=== PATIENT | female | born 1990 | race Caucasian/White ===

== ENCOUNTER 2016-10-30 19:24 | Emergency (ER) | payer OTHER ==
[2016-10-30] MEDS ORDERED: ACETAMINOPHEN 325 MG TABLET PO ONE (19:54)
--- NOTE | 2016-10-30 19:54 | ER Document Report ---
ED Medical Screen (RME) - General Chief Complaint: Dog Bite Stated Complaint: DOG BITE/LEFT HAND INJURY Time seen by provider: 19:52 Mode of Arrival: Ambulatory Notes: 26 yo female presents to ed for dog bite to left 3rd finger TRAVEL OUTSIDE OF THE [place] IN LAST 30 DAYS: No - HPI Onset: This evening - 1740 Onset/Duration: Sudden Quality of pain: Sharp Severity: Moderate Pain Level: 3 Associated Symptoms: Other - dog bite to finger Exacerbated by: Movement Relieved by: Denies Similar symptoms previously: No Recently seen / treated by doctor: No - Related Data Smoking: Non-smoker Frequency of alcohol use: None Drug Abuse: None Allergies/Adverse Reactions: No Known Allergies Allergy (Verified 09/21/14 20:47) Past Medical History - Immunizations Hx Diphtheria, Pertussis, Tetanus Vaccination: Yes Physical Exam - Vital signs Vitals: Temp Pulse Resp BP Pulse Ox 98.0 F 85 18 114/70 100 10/30/16 19:48 10/30/16 19:48 10/30/16 19:48 10/30/16 19:48 10/30/16 19:48 Course - Vital Signs Vital signs: Temp Pulse Resp BP Pulse Ox 98.0 F 85 18 114/70 100 10/30/16 19:48 10/30/16 19:48 10/30/16 19:48 10/30/16 19:48 10/30/16 19:48
--- NOTE | 2016-10-30 21:34 | ER Document Report ---
ED Animal Bite - General Chief Complaint: Dog Bite Stated Complaint: DOG BITE/LEFT HAND INJURY Time seen by provider: 21:27 Mode of Arrival: Ambulatory Notes: This is a [id number] 26-year-old female that presents today with left middle finger injury. She states at 1740 this afternoon she was taking her dog outside, and the dog got startled and bit her left distal middle finger. She is up-to-date on her tetanus; last tetanus shot was 2012. Denies nausea vomiting fever or chills. Dog is up-to-date on vaccinations. TRAVEL OUTSIDE OF THE [place] IN LAST 30 DAYS: No - Related Data Allergies/Adverse Reactions: No Known Allergies Allergy (Verified 10/30/16 19:53) Past Medical History - General Information source: Patient Last Menstrual Period: july 10 2016 - Social History Smoking Status: Never Smoker Chew tobacco use (# tins/day): No Frequency of alcohol use: None Drug Abuse: None Family History: Reviewed & Not Pertinent Patient has suicidal ideation: No Patient has homicidal ideation: No - Immunizations Hx Diphtheria, Pertussis, Tetanus Vaccination: Yes Review of Systems - Review of Systems Constitutional: denies: Fever EENT: denies: Blurred vision Cardiovascular: denies: Chest pain Respiratory: denies: Cough, Short of breath Gastrointestinal: denies: Abdominal pain Genitourinary: No symptoms reported Female Genitourinary: No symptoms reported Musculoskeletal: No symptoms reported. denies: Joint swelling Skin: See HPI Hematologic/Lymphatic: denies: Anemia, Easy bleeding Neurological/Psychological: No symptoms reported Physical Exam - Vital signs Vitals: Temp Pulse Resp BP Pulse Ox 98.0 F 85 18 114/70 100 10/30/16 19:48 10/30/16 19:48 10/30/16 19:48 10/30/16 19:48 10/30/16 19:48 - HEENT Head: Normocephalic, Atraumatic Eyes: Normal Cornea: Normal - Respiratory Respiratory status: No respiratory distress Chest status: Nontender Breath sounds: Normal. No: Rales, Rhonchi, Stridor, Wheezing - Cardiovascular Rhythm: Regular Heart sounds: Normal auscultation - Abdominal Inspection: Normal Distension: No distension Tenderness: Nontender - Extremities General upper extremity: Normal inspection, Tender - Left distal middle finger tender to palpation and normal sensation. Nail is cracked horizontally. No puncture wound noted on exam. No injury noted on the palmar side of left hand. , Normal ROM General lower extremity: Normal inspection, Nontender Wrist: Normal, Nontender - Neurological Orientation: AAOx4 - Psychological Associated symptoms: Normal affect, Normal mood - Skin Skin Temperature: Warm Skin Moisture: Dry Skin Color: Normal Course - Vital Signs Vital signs: Temp Pulse Resp BP Pulse Ox 97.9 F 88 16 117/70 100 10/30/16 22:54 10/30/16 22:54 10/30/16 22:54 10/30/16 22:54 10/30/16 22:54 Discharge - Discharge Clinical Impression: Dog bite Qualifiers: Encounter type: initial encounter Qualified Code(s): W54.0XXA - Bitten by dog, initial encounter Condition: Good Disposition: HOME, SELF-CARE Additional Instructions: Return to the emergency department if symptoms worsen. Follow-up with primary care physician Prescriptions: Amox Tr/Potassium Clavulanate [Augmentin 875-125 mg Tablet] 1 tab PO BID #20 tablet
[2016-10-30 23:29] VITALS: BP 117/70
== END 2016-10-30 23:52 | disposition home or self-care (01) ==
LOC: ER 19:24
DX: S69.92XA Unspecified injury of left wrist, hand and finger(s), initial encounter (principal); W54.0XXA Bitten by dog, initial encounter; Y92.007 Garden or yard of unspecified non-institutional (private) residence as the place of occurrence of the external cause
CPT/HCPCS: 99283

== ENCOUNTER 2017-05-04 02:52 | Inpatient (IN) | payer OTHER ==
[2017-05-04] MEDS ORDERED: PENICILLIN G POTASSIUM 5,000,000 UNIT in DEXTROSE 5%-WATER 100 ML IV ONE (03:45)
[2017-05-04 03:46] LABS: APPEARANCE,URINE CLEAR; BILIRUBIN,URINE NEGATIVE (NEGATIVE); GLUCOSE, URINE NEGATIVE (NEGATIVE); KETONES,URINE NEGATIVE (NEGATIVE); LEUKOCYTE ESTERASE,URINE NEGATIVE (NEGATIVE); NITRITE,URINE NEGATIVE (NEGATIVE); PROTEIN,URINE NEGATIVE (NEGATIVE); URINE SPECIFIC GRAVITY 1.006; UROBILINOGEN,URINE NEGATIVE mg/dL (<2.0)
[2017-05-04 03:52] LABS: AMNISURE (ROM) POSITIVE (NEGATIVE)
[2017-05-04 04:01] LABS: URINE BARBITURATES SCREEN NEGATIVE; URINE METHADONE SCREEN NEGATIVE; URINE OPIATES LOW NEGATIVE; URINE PHENCYCLIDINE SCREEN NEGATIVE
[2017-05-04 04:06] LABS: ABSOLUTE EOSINOPHILS # (AUTO) 0.1 10^3/uL (0.0-0.6); ABSOLUTE LYMPHOCYTES (AUTO) 1.5 10^3/uL (0.5-4.7); ABSOLUTE MONOCYTES (AUTO) 0.9 10^3/uL (0.1-1.4); ABSOLUTE NEUT (AUTO) 6.7 10^3/uL (1.7-8.2); BASOPHILS % (AUTO) 0.3 % (0-2); HEMATOCRIT 35.1 % (36.0-47.0); HEMOGLOBIN 11.9 g/dL (12.0-15.5); HGB HCT DIFFERENCE 0.6; LYMPHOCYTES % (AUTO) 16.5 % (13-45); MEAN CORPUSCULAR HEMOGLOBIN 29.9 pg (27.0-33.4); MEAN CORPUSCULAR HGB CONC 33.8 g/dL (32.0-36.0); MEAN CORPUSCULAR VOLUME 88 fl (80-97); MONOCYTES % (AUTO) 10.1 % (3-13); RED BLOOD COUNT 3.97 10^6/uL (3.72-5.28); RED CELL DISTRIBUTION WIDTH 14.9 % (11.5-14.0); SEGMENTED NEUTROPHILS % (AUTO) 72.1 % (42-78); WHITE BLOOD COUNT 9.2 10^3/uL (4.0-10.5)
[2017-05-04] MEDS ORDERED: PENICILLIN G-K 5 MILLION UNIT VIAL ONE ×3 (04:23→12:22)
[2017-05-04] MEDS ORDERED: RINGERS SOLUTION,LACTATED 1,000 ML IV PRN (04:49)
[2017-05-04] MEDS ORDERED: OXYTOCIN/NORMAL SALINE 20 UNIT/1,000 ML RTUINJ ONE (08:02)
[2017-05-04] MEDS ORDERED: PENICILLIN G POTASSIUM 2,500,000 UNIT in DEXTROSE 5%-WATER 50 ML IV SCH (08:50)
[2017-05-04] MEDS ORDERED: PENICILLIN G-K 5 MILLION UNIT VIAL IV SCH (10:00)
[2017-05-04] MEDS ORDERED: FENTANYL CITRATE INJ/PF 100 MCG/2 ML AMPUL ONE (12:18)
[2017-05-04] MEDS ORDERED: EPHEDRINE SULFATE INJ 50 MG/1 ML AMPULE ONE (12:18)
[2017-05-04] MEDS ORDERED: PHENYLEPHRINE HCL INJ/PF 10 MG/1 ML SDV ONE (12:18)
[2017-05-04] MEDS ORDERED: FENTANYL/BUPIVACAINE/NS/PF 0 MCG/0 ML RTUINJ EPI ONE (12:19)
[2017-05-04] MEDS ORDERED: BUPIVACAINE HCL 0.25 % INJ/PF (2.5 MG/1 ML) 30 ML VIAL ONE (12:19)
[2017-05-04] MEDS ORDERED: DIPHENHYDRAMINE HCL 25 MG CAPSULE PO PRN (13:20)
[2017-05-04] MEDS ORDERED: BENZOCAINE/MENTHOL AEROSOL SPRAY 56 ML TOP PRN (13:20)
[2017-05-04] MEDS ORDERED: PROMETHAZINE HCL 25 MG TABLET PO PRN (13:20)
[2017-05-04] MEDS ORDERED: PROMETHAZINE HCL 25 MG SUPP.RECT PR PRN (13:20)
[2017-05-04] MEDS ORDERED: OXYTOCIN/NORMAL SALINE 1,000 ML IV PRN (13:20)
[2017-05-04] MEDS ORDERED: NA PHOS,M-B/NA PHOS,DI-BA (ADULT) 133 ML ENEMA PR PRN (13:20)
[2017-05-04] MEDS ORDERED: GLYCERIN/WITCH HAZEL LEAF 1 EACH MED..PAD TP PRN (13:20)
[2017-05-04] MEDS ORDERED: DIBUCAINE 1% OINTMENT 28 GM TP PRN (13:20)
[2017-05-04] MEDS ORDERED: ACETAMINOPHEN 650 MG SUPP.RECT PR PRN (13:20)
[2017-05-04] MEDS ORDERED: PSEUDOEPHEDRINE HCL 30 MG TABLET PO PRN (13:20)
[2017-05-04] MEDS ORDERED: PROMETHAZINE HCL INJ 25 MG/1 ML VIAL IV PRN (13:20)
[2017-05-04] MEDS ORDERED: DIPH/PERTUSS(ACELL)/TETANUS VAC/PF 0.5 ML SYR (>=10YO) IM PRN (13:20)
[2017-05-04] MEDS ORDERED: MAGNESIUM HYDROXIDE SUSP 30 ML UDCUP PO PRN (13:20)
[2017-05-04] MEDS ORDERED: MEASLES,MUMPS&RUBELLA VACC/PF 0.5 ML VIAL SUBCUT PRN (13:20)
[2017-05-04] MEDS ORDERED: ACETAMINOPHEN WITH CODEINE #3 TABLET PO PRN (13:20)
[2017-05-04] MEDS ORDERED: IBUPROFEN 800 MG TABLET ONE (14:14)
[2017-05-04] MEDS: IBUPROFEN 800 MG TABLET PO SCH ×2 (14:25→22:14)
--- NOTE | 2017-05-04 15:14 | Admission Physical ---
Datetime Report Generated by CPN: 05/04/2017 15:14 CURRENT ADMISSION Chief Complaint: Uterine Contractions; Suspected Ruptured Membranes Indication for Induction: PROM Admit Plan: Admit to Unit; Initiate Labor Augmentation Protocol ALLERGIES Medication Allergies: No Medication Allergies: No Known Allergies (05/04/2017) Medication Allergies: No Known Allergies (10/30/2016) Latex: No Latex Allergies Food Allergies: denies Environmental Allergies: seasonal OBSTETRICAL HISTORY EDC: 05/08/2017 00:00 : 4 Para: 2 Term: 2 : 0 SAB: 1 IAB: 0 Ectopic: 0 Livin Cesareans: 0 VBACs: 0 Multiple Births: 0 Gestational Diabetes: No Rh Sensitization: No Incompetent Cervix: No ZAHIRA: No Infertility: No ART Treatment: No Uterine Anomaly: No IUGR: No Hx Previous C/S: No Macrosomia: No Hx Loss/Stillborn: No PIH: No Hx : No Placenta Previa/Abruption: No Depression/PP Depression: No PTL/PROM: No Post Hemorrhage: No Current Procedures: Ultrasound; NST Obstetrical History Comments: g1- 2007, 41 weeks, , female, 62 hour labor g2-2012, 40+3 weeks, IOL, , female g3- 2013,12 weeks, not growing past 8 weeks, SAB g4-current SEE RECORDS Alcohol: No Marijuana : No Cocaine: No Other Illicit Drugs: No Cigarettes: Never Smoker. 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 Heart Disease: No Hosp/Surgery: Yes Autoimmune Disorder: No Anesthetic Complications: No Kidney Disease: No Abnormal Pap Smear: Yes Neuro/Epilepsy: No Psychiatric Disorders: Yes Other Medical Diseases: No Hepatitis/Liver Disease: No Significant Family History: No Varicosities/Phlebitis: No Trauma/Violence : No Thyroid Dysfunction: No Medical History Comments: anxiety on effexor, abnormal pap with colpo 2017, childbirth x 2 INFECTIOUS HISTORY Gonorrhea: No Genital Herpes: No Chlamydia: Yes Tuberculosis: No Syphilis: No Hepatitis: No HIV/AIDS Exposure: No Rash or Viral Illness: No HPV: No Infectious History Comments: chlamydia 2005 PHYSICAL EXAM General: Normal HEENT: Normal Neurologic: Normal Thyroid: Normal Heart: Normal Lungs: Normal Breast: Normal Back: Normal Abdomen: Normal Genitourinary Exam: Normal Extremities: Normal DTRs: Normal Pelvic Type: Adequate Vital Signs: Reviewed VAGINAL EXAM Dilatation: 2 Effacement: 50 Station: -2 MEMBRANES Pooling: Positive Membranes: Ruptured Amniotic Fluid Color: Clear FETUS A EGA: 39.3 Monitoring: External US FHR- Baseline: 130 Variability: Moderate 6-25bpm Accelerations: 10X10 Decelerations: None FHR Category: Category I Estimated Weight (gm): 3500 Presentation: Vertex PLANS FOR LABOR AND DELIVERY Labor and Delivery: None Pain Management: Natural; Medications Feeding Preference: Breast Benefit of Breast Feed Discussed: Yes Circumcision: N/A INFORMED CONSENT Signature: with User ID: [email or web address]
[2017-05-04] MEDS: FERROUS SULFATE 325 MG TABLET PO SCH (17:10)
[2017-05-04] MEDS: DOCUSATE SODIUM 100 MG CAPSULE PO SCH (17:10)
[2017-05-04] MEDS: FAMOTIDINE 20 MG TABLET PO SCH (22:14)
[2017-05-05] MEDS: IBUPROFEN 800 MG TABLET PO SCH ×3 (06:22→22:55)
[2017-05-05 07:28] LABS: HEMATOCRIT 32.4 % (36.0-47.0); HEMOGLOBIN 10.7 g/dL (12.0-15.5); HGB HCT DIFFERENCE -0.3; MEAN CORPUSCULAR HEMOGLOBIN 29.6 pg (27.0-33.4); MEAN CORPUSCULAR HGB CONC 33.1 g/dL (32.0-36.0); MEAN CORPUSCULAR VOLUME 89 fl (80-97); RED BLOOD COUNT 3.62 10^6/uL (3.72-5.28); RED CELL DISTRIBUTION WIDTH 15.4 % (11.5-14.0); WHITE BLOOD COUNT 12.5 10^3/uL (4.0-10.5)
--- NOTE | 2017-05-05 09:23 | PDOC PROGRESS REPORT ---
Subjective-OB Subjective: Post Delivery Day: 27 year old. Denies any needs at this time Doing well, hsb is deployed and will be back in June, parents are coming in a few weeks, has friends that can help her at home, breast feeding, voiding, baby weighed 8-5, Hx of depression and anxiety and would like to restart Effexor 75 at HS. Ambulating, eating well, voiding, lochia moderate Physical Exam (OB) Vital Signs: Temp Pulse Resp BP Pulse Ox 97.5 F 83 16 123/76 98 05/05/17 07:42 05/05/17 07:42 05/05/17 07:42 05/05/17 07:42 05/05/17 07:42 Intake & Output 05/04/17 05/05/17 05/06/17 06:59 06:59 06:59 Weight 82.2 kg - PIH/Pre-Eclampsia Clonus: Negative - Lochia Lochia Amount: Scant < 10 ml Lochia Color: Rubra/Red - Abdomen Description: Soft, Flat Hernia Present: No Fundal Description: Firm, Midline Fundal Height: u/u - u/2 Objective-Diagnostic Laboratory: 05/05/17 06:54 05/05/17 06:54 WBC 12.5 H RBC 3.62 L Hgb 10.7 L Hct 32.4 L MCV 89 MCH 29.6 MCHC 33.1 RDW 15.4 H Plt Count 150 Assessment and Plan(PN) - Assessment and Plan (1) Depression Qualifiers: Depression Type: unspecified Qualified Code(s): F32.9 - Major depressive disorder, single episode, unspecified Is this a current diagnosis for this admission?: Yes (2) Anxiety Is this a current diagnosis for this admission?: Yes (3) Vaginal delivery Is this a current diagnosis for this admission?: Yes - Time Spent with Patient Time with patient: Less than 15 minutes Smoking Education Provided: Over 3 minutes Medications reviewed and adjusted accordingly: Yes - Disposition Anticipated Discharge: Home Within: within 24 hours
--- NOTE | 2017-05-05 09:36 | Delivery Summary ---
Del Sum A-C Datetime Report Generated by CPN: 05/05/2017 09:36 DELIVERY PERSONNEL DELIVERY PERSONNEL: [phone] Nurse Mission Planner Certified:: Maritza Felder CNM Labor and Delivery Nurse:: LOLY Duron Labor and Delivery Nurse:: Lacey Claudio RN Counsellors/CASH APPLICATIONS SPECIALIST: Jannet MichelleALMA ROSA collazo II Counsellors/CASH APPLICATIONS SPECIALIST: Lis Hurt, SMOKE CONTROL SUPERVISOR MATERNAL INFORMATION Delivery Anesthesia: None Estimated Blood Loss (ml): 100 Maternal Complications: None Provider Comments: Pt. progressed to c/c/+1 with urge to push. Began pushing and quickly delivered head. Pt. continued pushing, nuchal cord x1 noted and unable to deliver shoulder until cork screw manuever was applied (54 sec shoulder dystocia). Baby placed on maternal abdomen and immediately evaluated by nursing staff. Cord clamped x2 and cut, then baby to warmer. Placenta delivered spontaneously intact (3vc noted). Vaginal and perineal inspection revealed no lacerations and smal abrasion noted as stated above. Mother and baby skin to skin and stable at this time. LABOR SUMMARY EDC: 05/08/2017 00:00 No. Babies in Womb: 1 Attempted: No Labor Anesthesia: None LABOR INFORMATION Complete Dilatation: 05/04/2017 12:37 Oxytocin: Induction Group B Beta Strep: positive Steroids Given: None Reason Steroids Not Administered: Not Applicable MEMBRANES Membranes Rupture Method: Spontaneous Rupture of Membranes: 05/04/2017 02:26 Length of Rupture (hr): 10.65 Amniotic Fluid Color: Clear Amniotic Fluid Amount: Small Amniotic Fluid Odor: Normal STAGES OF LABOR Stage 2 hr: 0 Stage 2 min: 28 Stage 3 hr: 0 Stage 3 min: 5 VAGINAL DELIVERY Episiotomy: None Laceration Extension: N/A Laceration Type: None Other Laceration: perineal abrasion-superficial no bleeding Laceration Repair: Not Applicable Sponge Count Correct: N/A Sharps Count Correct: N/A CSECTION DELIVERY Primary Indication: N/A CSection Incidence: N/A Labor: N/A Elective: N/A CSection Incision: N/A BABY A INFORMATION Delivery Date/Time: 05/04/2017 13:05 Method of Delivery: Vaginal Born in Route : No : N/A Forceps: N/A Vacuum Extraction: N/A Shoulder Dystocia : Yes SHOULDER DYSTOCIA BABY A Delivery of Head: 05/04/2017 13:04 Time Head to Delivery : 1.0 1st Intervention to Resolve: Gentle Attempt at Traction, Assisted by Maternal Expulsive Efforts 2nd Intervention to Resolve: McRobert's Maneuver 3rd Intervention to Resolve: Quiñonez Maneuver Verify NO Fundal Pressure: No Fundal Pressure Applied Arm Under Symphisis at Del: Right PRESENTATION/POSITION BABY A Presentation: Cephalic Cephalic Presentation: Vertex Vertex Position: Left Occipital Anterior Breech Presentation: N/A PLACENTA INFORMATION BABY A Placenta Delivery Time : 05/04/2017 13:10 Placenta Method of Delivery: Spontaneous Placenta Status: Delivered SCORES BABY A Heart Rate 1 min: >100 bpm Resp Effort 1 min: Slow, Irregular Reflex Irritability 1 min: Cough or Sneeze or Pulls Away Muscle Tone 1 min: Flaccid Color 1 min: Body [place], Extremities Blue Resuscitation Effort 1 min: Tactile Stimulation; PPV/NCPAP SCORE 1 MIN: 6 Heart Rate 5 min: >100 bpm Resp Effort 5 min: Good Cry Reflex Irritability 5 min: Cough or Sneeze or Pulls Away Muscle Tone 5 min: Active Motion Color 5 min: Body [place], Extremities Blue Resuscitation Effort 5 min: Tactile Stimulation SCORE 5 MIN: 9 INFORMATION BABY A Gestational Age at Delivery: 39.3 Gestational Status: Full Term- 39- 40.6 Weeks Infant Outcome : Liveborn Infant Condition : Stable (Annotations: Data stored by [facility] on behalf of user) Infant Sex: Female IDENTIFICATION BABY A Infant Verification Date/Time: 05/04/2017 13:34 ID Band Number: [id number] Mother's Name Verified: Yes RN Verifying : Ruma Claudio RNC Additional Verifying Personnel: Markos De La Torre RNC WEIGHT/LENGTH BABY A Birthweight (gm): 3760 Infant Weight (lb): 8 Infant Weight (oz): 5 Infant Length (in): 20.00 Infant Length (cm): 50.80 CORD INFORMATION BABY A No. Cord Vessels: 3 Nuchal Cord : Around Neck x1, Loose Cord Blood Taken: Yes-For Eval (Mom's Blood Type - or O+) Infant Suction: Mouth; Nose ASSESSMENT BABY A Infant Complications: Multiple Variable Decels; Shoulder Dystocia Physical Findings at Delivery: Within Normal Limits Infant Respirations: Appears Normal Skin to Skin: Yes Rn Plastics/ALS Called : No Care By: Markos De La Torre [facility] Transferred To: Remains with Mother BABY B INFORMATION : N/A
[2017-05-05] MEDS ORDERED: VENLAFAXINE HCL 75 MG TABLET PO SCH ×2 (10:00→22:00)
[2017-05-05] MEDS: FAMOTIDINE 20 MG TABLET PO SCH ×2 (10:16→22:54)
[2017-05-05] MEDS: SENNOSIDES/DOCUSATE 8.6-50 MG 1 EACH TABLET PO SCH (10:16)
[2017-05-05] MEDS: FERROUS SULFATE 325 MG TABLET PO SCH ×2 (10:16→17:21)
[2017-05-05] MEDS: PRENATAL VITAMIN W-O CA NO5/FE FUMARATE/FA CAPSULE PO SCH (10:17)
[2017-05-05] MEDS: DOCUSATE SODIUM 100 MG CAPSULE PO SCH ×2 (10:17→17:21)
[2017-05-06] MEDS: IBUPROFEN 800 MG TABLET PO SCH (05:18)
[2017-05-06 08:35] VITALS: BP 119/78
[2017-05-06] MEDS: SENNOSIDES/DOCUSATE 8.6-50 MG 1 EACH TABLET PO SCH (10:03)
[2017-05-06] MEDS: FAMOTIDINE 20 MG TABLET PO SCH (10:03)
[2017-05-06] MEDS: FERROUS SULFATE 325 MG TABLET PO SCH (10:03)
[2017-05-06] MEDS: PRENATAL VITAMIN W-O CA NO5/FE FUMARATE/FA CAPSULE PO SCH (10:03)
[2017-05-06] MEDS: DOCUSATE SODIUM 100 MG CAPSULE PO SCH (10:03)
--- NOTE | 2017-05-06 10:13 | PDOC DISCHARGE SUMMARY ---
Final Diagnosis Discharge Date: 05/06/17 Discharge Data - Discharge Medication Home Medications: Vit/Iron Fumarate/FA [ Tablet] 1 tab PO DAILY 05/04/17 Venlafaxine HCl [Effexor 75 mg Tablet] 75 mg PO QPM 05/04/17 Docusate Sodium [Colace 100 mg Capsule] 100 mg PO BID #60 capsule 05/06/17 Ferrous Sulfate [Feosol 325 mg Tablet] 325 mg PO BID #60 tablet 05/06/17 Ibuprofen [Motrin 800 mg Tablet] 800 mg PO Q8 #60 tablet 05/06/17 Gestational Age: 39.3 Reason(s) for Admission: Onset of Labor, PROM Procedures: NST Intrapartum Procedure(s): Spontaneous Vaginal Delivery, Other - shoulder dystocia - Data Baby 1 Female at 1 minute: 6 at 5 minutes: 9 Weight: 3760 kg Home with Mother: Yes Complications: No - Diagnosis Test Laboratory: Temp Pulse Resp BP Pulse Ox 97.5 F 80 16 119/78 100 05/06/17 07:40 05/06/17 07:40 05/06/17 07:40 05/06/17 07:40 05/06/17 07:40 05/04/17 05/04/17 05/05/17 03:25 03:42 06:54 RBC 3.97 3.62 L Hgb 11.9 L 10.7 L Hct 35.1 L 32.4 L Urine Opiates Screen NEGATIVE - Discharge information/Instructions Discharge Activity: Activity As Tolerated, Pelvic Rest, No tub bath Discharge Diet: Regular Disposition: HOME, SELF-CARE Follow up with: [facility] in: 4, Weeks
== END 2017-05-06 12:03 | disposition home or self-care (01) | DRG 775 ==
LOC: LC 02:52 → LR 03:30 → 2S 15:13
PROVIDERS: ADMIT Obstetrics & Gynecology; ATTEND Obstetrics & Gynecology
PROC: 10E0XZZ Delivery of Products of Conception, External Approach (ICD-10-PCS; principal; 2017-05-04)
PROC: 3E033VJ Introduction of Other Hormone into Peripheral Vein, Percutaneous Approach (ICD-10-PCS; 2017-05-04)
PROC: 4A1HXCZ Monitoring of Products of Conception, Cardiac Rate, External Approach (ICD-10-PCS; 2017-05-04)
DX: O42.02 Full-term premature rupture of membranes, onset of labor within 24 hours of rupture (principal); O66.0 Obstructed labor due to shoulder dystocia; O99.344 Other mental disorders complicating childbirth; F32.9 Major depressive disorder, single episode, unspecified; F41.9 Anxiety disorder, unspecified; O69.81X0 Labor and delivery complicated by cord around neck, without compression, not applicable or unspecified; O99.824 Streptococcus B carrier state complicating childbirth; Z3A.39 39 weeks gestation of pregnancy; Z37.0 Single live birth
CPT/HCPCS: 36415; 80307; 81005; 84112; 85025; 85027; 86592; 86850; 86900; 86901; 88307; J2370; J2540; J2590; J3010; J3490

== ENCOUNTER 2017-07-23 08:36 | Day surgery (SDC) | payer OTHER ==
[2017-07-21 11:36] LABS: HEMATOCRIT 38.6 % (36.0-47.0); HEMOGLOBIN 13.2 g/dL (12.0-15.5); MEAN CORPUSCULAR HEMOGLOBIN 29.2 pg (27.0-33.4); MEAN CORPUSCULAR HGB CONC 34.2 g/dL (32.0-36.0); MEAN CORPUSCULAR VOLUME 86 fl (80-97); RED BLOOD COUNT 4.51 10^6/uL (3.72-5.28); RED CELL DISTRIBUTION WIDTH 13.5 % (11.5-14.0); WHITE BLOOD COUNT 5.5 10^3/uL (4.0-10.5)
[2017-07-21 11:37] LABS: APPEARANCE,URINE CLEAR; BILIRUBIN,URINE NEGATIVE (NEGATIVE); GLUCOSE, URINE NEGATIVE (NEGATIVE); KETONES,URINE NEGATIVE (NEGATIVE); LEUKOCYTE ESTERASE,URINE NEGATIVE (NEGATIVE); NITRITE,URINE NEGATIVE (NEGATIVE); PROTEIN,URINE NEGATIVE (NEGATIVE); URINE SPECIFIC GRAVITY 1.008; UROBILINOGEN,URINE NEGATIVE mg/dL (<2.0)
[~2017-07-23 08:36] MED LIST: LACTATED RINGERS 1000 ML IV PRN; LIDOCAINE 0.5% INJ-PF (5 MG/ML) 50 ML SDV SUBCUT PRN
[2017-07-23] MEDS ORDERED: PROPOFOL INJ 200 MG/20 ML VIAL IV ONE (10:00)
[2017-07-23] MEDS ORDERED: HYDROMORPHONE HCL INJ/PF 2 MG/ML AMPULE ONE (10:00)
[2017-07-23] MEDS ORDERED: ACETAMINOPHEN 100 ML IV ONE (10:00)
[2017-07-23] MEDS ORDERED: MIDAZOLAM 2 MG/2 ML INJ ONE (10:00)
[2017-07-23] MEDS ORDERED: PROMETHAZINE HCL INJ 25 MG/1 ML VIAL IV PRN ×2 (10:34)
[2017-07-23] MEDS ORDERED: OXYCODONE-ACETAMINOPHEN 5-325 MG TABLET PO PRN ×4 (10:34→11:18)
[2017-07-23] MEDS ORDERED: ONDANSETRON HCL INJ/PF 4 MG/2 ML SDV IV PRN (10:34)
[2017-07-23] MEDS ORDERED: MORPHINE SULFATE 10 MG/ML INJ IV PRN (10:34)
[2017-07-23] MEDS ORDERED: MEPERIDINE HCL/PF INJ 25 MG/1 ML DISP.SYRIN IV PRN (10:34)
[2017-07-23] MEDS ORDERED: DIPHENHYDRAMINE HCL 50 MG/ML VIAL IV PRN (10:34)
[2017-07-23] MEDS ORDERED: FENTANYL CITRATE INJ/PF 100 MCG/2 ML AMPUL IV PRN ×3 (10:34)
--- NOTE | 2017-07-23 11:11 | Operative Report ---
Operative Report DATE OF SURGERY: 07/23/17 PREOPERATIVE DIAGNOSIS: Desires surgical sterilization POSTOPERATIVE DIAGNOSIS: Same OPERATION: Laparoscopic tubal with fulguration SURGEON: HERMINIA SALINAS ANESTHESIA: GA TISSUE REMOVED OR ALTERED: Fallopian tube COMPLICATIONS: None ESTIMATED BLOOD LOSS: Minimal INTRAOPERATIVE FINDINGS: Normal female pelvis PROCEDURE: Patient was taken to the OR and placed in a supine position. General anesthesia was induced and she was placed in dorsolithotomy position. She did not need a catheter because she had just voided. A sponge stick was placed in the vagina. Her abdomen perineum and vagina were prepared and draped in sterile fashion. An incision was made at the umbilicus and the natural umbilical defect was identified and dilated with a Krissy clamp allowing a blunt port to be placed. Laparoscopy confirmed appropriate placement. The abdomen was insufflated with CO2 gas. Each fallopian tube was identified followed out to its fimbriated end and then cauterized at the mid isthmic portion moving back toward the uterine cornea with 5 successive bites. Photos were taken at the end of the case. The scope and port were removed in unison. The gas was allowed to escape from the abdomen. The fascia at the umbilicus was closed with a 2 0 dyed suture of Vicryl. The skin was closed with a 4-0 undyed suture of Vicryl. The sponge stick was removed from the vagina. She was extubated in the OR and taken to recovery room stable condition.
[2017-07-23] MEDS ORDERED: IBUPROFEN 800 MG TABLET PO PRN (11:17)
[2017-07-23] MEDS ORDERED: RINGERS SOLUTION,LACTATED 1,000 ML IV PRN (11:17)
[2017-07-23] MEDS ORDERED: KETOROLAC TROMETHAMINE INJ/PF 30 MG/1 ML SDV IV PRN (11:17)
[2017-07-23] MEDS ORDERED: ONDANSETRON HCL INJ/PF 4 MG/2 ML SDV ONE (12:37)
[2017-07-23] MEDS ORDERED: LIDOCAINE 2% INJ-PF (20 MG/ML) 10 ML AMPUL ONE (12:37)
[2017-07-23] MEDS ORDERED: ROCURONIUM BROMIDE INJ 50 MG/5 ML VIAL IV ONE (12:37)
[2017-07-23] MEDS ORDERED: SUCCINYLCHOLINE CHLORIDE INJ 200 MG/10 ML VIAL ONE (12:37)
[2017-07-23] MEDS ORDERED: METOCLOPRAMIDE HCL INJ/PF 10 MG/2 ML SDV ONE (12:37)
[2017-07-23] MEDS ORDERED: DEXAMETHASONE SOD PHOSPHATE INJ 4 MG/1 ML VIAL ONE (12:37)
[2017-07-23 16:01] VITALS: BP 114/75
== END 2017-07-23 13:20 | disposition home or self-care (01) ==
LOC: OROUT 08:36
PROVIDERS: ATTEND Obstetrics & Gynecology
PROC: 0UB74ZZ Excision of Bilateral Fallopian Tubes, Percutaneous Endoscopic Approach (ICD-10-PCS; principal; 2017-07-23 10:30)
DX: Z30.2 Encounter for sterilization (principal); Z87.891 Personal history of nicotine dependence
CPT/HCPCS: 58671; 36415; 85027; 81005; 81025; J2250; J3490 ×2; J1100; J2765; J1170; J0330; J2405; J2704; J0131; 851